=== PATIENT | male | born 2000 | race Caucasian/White ===

== ENCOUNTER 2018-05-23 16:25 | Outpatient (CLI) | payer BC, OTHER ==
[2018-05-23 19:40] LABS: CHOLESTEROL 122 mg/dL; HDL CHOLESTEROL 62 mg/dL; LDL CHOLESTEROL,CALCULATED 48 mg/dL; LDL/HDL RATIO 0.8 (<3.6); VLDL CHOLESTEROL 12 mg/dL
== END 2018-05-23 16:26 | disposition home or self-care (01) ==
LOC: LAB.R 16:25
PROVIDERS: ATTEND Pediatrics
DX: Z13.9 Encounter for screening, unspecified (principal); Z83.49 Family history of other endocrine, nutritional and metabolic diseases
CPT/HCPCS: 80061; 83721